=== PATIENT | female | born 2000 | race Caucasian/White ===

== ENCOUNTER 2021-08-07 11:18 | Outpatient (CLI) | payer OTHER, SELFPAY ==
[2021-08-07 11:40] VITALS: BP 135/75; PULSE 80; RESP 16; TEMP 36.6; O2SAT 98
[2021-08-07] MEDS: ACETAMINOPHEN 325 MG TABLET 650 MG PO (11:41)
[2021-08-07] MEDS: FAMOTIDINE 20 MG TABLET PO (11:42)
[2021-08-07] MEDS: diphenhydrAMINE HCl CAP 25 MG CAPSULE PO (11:42)
--- NOTE | 2021-08-07 11:43 | PC.NURSE ---
Patient here for IV infusion of Bamianivimab/Etesevimab r/t positive for Covid and meeting high criteria risk. Education given on medication. No concerns voiced. Permit signed. PO pre meds and IV Bamianivimab/Etesevimab administered. SEE MAR.
[2021-08-07 12:37] VITALS: BP 136/84; PULSE 80; RESP 14; TEMP 36.6; O2SAT 97
--- NOTE | 2021-08-07 12:37 | PC.NURSE ---
Tolerated infusion well. No s/sx of transfusion reaction note or reported. Safe exit of hospital.
== END 2021-08-07 11:19 | disposition home or self-care (01) ==
LOC: CHSTREATRM 11:22
PROVIDERS: PCP Nurse Practitioner Family; Visit Provider Nurse Practitioner Family
DX: U07.1 COVID-19 (principal)
CPT/HCPCS: A9270; M0245; Q0245

== ENCOUNTER 2022-02-26 10:27 | Outpatient (CLI) | payer OTHER, SELFPAY ==
--- NOTE | ~2022-02-26 | XR_ITS ---
XR hand BI arthritis min 3V DATE: 02/26/2022 11:39 INDICATION: Chronic bilateral hand joint pain TECHNIQUE: 4 views of each hand COMPARISON: None FINDINGS: No fracture or dislocation, periosteal reaction or bone destruction, erosive change or geetha drocalcinosis of either hand. Joint spaces appear well preserved. IMPRESSION: Negative Reviewed, dictated and finalized at location B. IMPRESSION: Negative
--- NOTE | ~2022-02-26 | XR_ITS ---
XR knee RT min 4V DATE: 02/26/2022 11:41 INDICATION: Chronic intermittent right knee pain TECHNIQUE: 4 views COMPARISON: None FINDINGS: There is mild loss of height of the medial compartment joint space. No fracture or dislocation or joint effusion. No periosteal reaction or bone destruction. No radiopaq ue intra-articular loose body or chondrocalcinosis. IMPRESSION: Mild loss of height of medial compartment joint space Reviewed, dictated and finalized at location B.
--- NOTE | ~2022-02-26 | XR_ITS ---
XR sacroiliac joints min 3V DATE: 02/26/2022 11:40 INDICATION: Chronic low back and hip pain TECHNIQUE: AP and bilateral oblique views COMPARISON: None FINDINGS: There is degenerative change including spurring and mild sclerosis at the sacroiliac joints , consistent with osteoarthritis. No fracture or dislocation, erosive change or ankylosis is noted. IMPRESSION: Degenerative change at the sacroiliac joints Reviewed, dictated and finalized at Location [facility]. Reviewed, dictated and finalized at location B.
[2022-02-26 11:23] LABS: Alanine Aminotransferase 29 U/L (14-59); Alkaline Phosphatase 67 U/L (46-116); Anion Gap 10 mmol/L (8-16); Aspartate Amino Transferase 17 U/L (15-37); Bilirubin,Total 0.3 mg/dL (0.00-1.00); Blood Urea Nitrogen 10 mg/dL (7-18); Calcium 8.9 mg/dL (8.5-10.1); Carbon Dioxide 27 mmol/L (21-32); Chloride 104 mmol/L (98-108); Estimated Glomerular Filt Rate > 60; Glucose 110 mg/dL (70-99); Osmolality Calculated 292 mOsm/kg (285-295); Potassium 3.9 mmol/L (3.5-5.1); Sodium 141 mmol/L (136-145); Total Protein 7.2 g/dL (6.4-8.2); Uric Acid 5.1 mg/dL (2.6-6.0)
[2022-02-26 11:26] LABS: CRP < 0.2 mg/dL (0.0-0.9)
[2022-03-02 19:38] LABS: SM Antibody <1.0; SM/RNP Antibody <1.0; SS-A <1.0; SS-B <1.0
[2022-03-06 22:11] LABS: ANCA Screen Negative (Negative); Myeloperoxidase Ab <1.0 AI (<1.0); Proteinase-3 Ab <1.0 AI (<1.0); S cerevisiae Ab (IgG) 20.1 U (<=20.0)
== END 2022-02-26 10:28 | disposition home or self-care (01) ==
PROVIDERS: PCP Family Medicine; Visit Provider Internal Medicine
DX: M25.541 Pain in joints of right hand (principal); M25.542 Pain in joints of left hand; L50.8 Other urticaria; Z79.899 Other long term (current) drug therapy; F42.9 Obsessive-compulsive disorder, unspecified; Z71.89 Other specified counseling
CPT/HCPCS: 36415; 72202; 73130; 73564; 80053; 84550; 86036; 86140; 86160; 86225; 86235; 86671

== ENCOUNTER 2022-05-08 14:41 | Outpatient (CLI) | payer OTHER, SELFPAY ==
[2022-05-08 15:33] LABS: Rheumatoid Factor Screen Negative (Negative)
[2022-05-11 20:03] LABS: Angiotensin Converting Enzyme 29.7 U/L (9-67)
[2022-05-12 09:13] LABS: Anti Cyclic Citrullinated Pept <16 Units (<20)
[2022-05-12 12:47] LABS: HLA B27 Positive (Negative)
== END 2022-05-08 14:42 | disposition home or self-care (01) ==
LOC: CHSLAB 14:43
PROVIDERS: PCP Family Medicine; Visit Provider Internal Medicine
DX: M19.90 Unspecified osteoarthritis, unspecified site (principal)
CPT/HCPCS: 36415; 82164; 86038; 86200; 86430; 86812

== ENCOUNTER 2022-05-11 16:10 | Outpatient (CLI) | payer OTHER, SELFPAY ==
[2022-05-17 21:11] LABS: Calprotectin, Stool 24 mcg/g
== END 2022-05-11 16:11 | disposition home or self-care (01) ==
LOC: CHSLAB 16:14
PROVIDERS: PCP Family Medicine
DX: M19.90 Unspecified osteoarthritis, unspecified site (principal); R19.7 Diarrhea, unspecified
CPT/HCPCS: 83993

== ENCOUNTER 2024-03-02 10:41 | Outpatient (CLI) | payer BC, SELFPAY ==
[2024-03-13 18:40] LABS: TB Skin Test Interpretation Unable to Read (Negative); TB Skin Test Site Left Arm
== END 2024-03-02 10:42 | disposition home or self-care (01) ==
LOC: CHSLAB 10:42
PROVIDERS: PCP Nurse Practitioner Family; Visit Provider Nurse Practitioner Family
DX: Z02.1 Encounter for pre-employment examination (principal)
CPT/HCPCS: 36415; 86580